=== PATIENT | female | born 2000 | race Two or more races ===

== ENCOUNTER 2024-06-04 09:14 | Inpatient (IN) | payer OTHER ==
[~2024-06-04] VITALS: Ht 167.6 cm; Wt 69.9 kg
--- NOTE | 2024-06-04 09:38 | NUR ---
PACIENTE ALERTA Y ORIENTADA X3. REFIERE DOLOR ABDOMINAL, VOMITOS X2 Y SANGRADO AL ORINAR. SE ESTIMAN VITALES Y SE UBICA.
[2024-06-04] MEDS ORDERED: ONDANSETRON HCL 2 MG/ML VIAL IV STA (09:43)
[2024-06-04] MEDS ORDERED: MEPERIDINE HCL/PF 50 MG/ML VIAL IM ONE (09:45)
--- NOTE | 2024-06-04 09:56 | NUR ---
SE LE ORIENTA A PACIENTE SOBRE LA ORDEN MEDICA, REFIERE ENTENDER LAS MISMAS. SE CANALIZA Y SE LE COLOCA H/L, SE LE GARY LAS MUESTRAS, SE NOTIFICA PARA REALIZA CT Y SE LE ADMINISTRAN LOS MEDICAMENTOS ZHANNA LA ORDEN MEDICA.
[2024-06-04 10:20] LABS: HEMATOCRIT 39.3 % (36.0-45.00); HEMOGLOBIN 13.6 g/dL (12.0-15.00); MEAN CORPUSCULAR HEMOGLOBIN 28.7 pg (27.00-32.0); MEAN CORPUSCULAR HGB CONC 34.6 g/dl (32.0-36.0); PLATELET COUNT 272 K/uL (150-450); RED BLOOD COUNT 4.73 M/uL (4.00-6.00); RED CELL DISTRIBUTION WIDTH 12.7 % (11.5-14.5)
[2024-06-04 10:40] LABS: CALCIUM 9.7 mg/dL (8.5-10.1); CREATININE SERUM 1.07 mg/dL (0.55-1.02); POTASSIUM 4.08 mEq/L (3.5-5.1)
[2024-06-04] MEDS ORDERED: SODIUM CHLORIDE 0.45 % 1,000 ML IV STA (15:34)
[2024-06-04] MEDS ORDERED: KETOROLAC TROMETHAMINE 15 MG VIAL IV STA (15:35)
--- NOTE | 2024-06-04 15:50 | NUR ---
SE ADMINISTRA MEDICAMENTO ZHANNA ORDEN MEDICA Y SE COLOCAN FLUIDOS DE MANTENIMIENTO.
[2024-06-04 17:24] LABS: URINE APPEARANCE Turbid; URINE BILIRRUBIN Negative (NEGATIVE); URINE BLOOD Large; URINE COLOR Yellow; URINE GLUCOSE Negative (NEGATIVE); URINE KETONE Negative (NEGATIVE); URINE LEUKOCYTE Large; URINE NITRATE Negative; URINE UROBILINOGEN 0.2 E.U./dl
[2024-06-04 17:25] LABS: URINE CAST 19.36 uL (0.0-1.40); URINE EPITHELIAL CELLS 19.3 uL (0.0-38.8); URINE RBC 37.5 uL (0.0-20.8)
[2024-06-04 17:47] LABS: URINE BACTERIA > 9821.5 uL (0.0-1933); URINE MUCUS SCANT; URINE PROTEIN 100 (NEGATIVE); URINE WBC > 5548.3 uL (0.0-23.2)
[2024-06-04] MEDS ORDERED: ACETAMINOPHEN 500 MG GEL..CAP PO ONE (18:00)
[2024-06-04] MEDS ORDERED: MEPERIDINE HCL 25 MG/ML AMPUL IV ONE (18:45)
[2024-06-04] MEDS ORDERED: 0.9 % SODIUM CHLORIDE 1,000 ML IV SCH ×2 (18:45→20:45)
[2024-06-04] MEDS ORDERED: CEFTRIAXONE SODIUM 2,000 MG VIAL IV ONE (19:15)
[2024-06-04] MEDS ORDERED: TAMSULOSIN HCL 0.4 MG CAP PO SCH (20:40)
[2024-06-04] MEDS ORDERED: ACETAMINOPHEN 500 MG GEL..CAP PO PRN (20:45)
[2024-06-04] MEDS ORDERED: KETOROLAC TROMETHAMINE 30 MG VIAL IU ONE (20:45)
[2024-06-04] MEDS ORDERED: KETOROLAC TROMETHAMINE 30 MG VIAL IU PRN (20:45)
[2024-06-04 21:13] VITALS: BP 96/61; O2SAT 100
[2024-06-04 21:42] LABS: INR 1.12; PARTIAL THROMBOPLASTIN TIME 30.9 SECONDS (22.0-34.0); PROTHROMBIN TIME 12.1 SECONDS (9.0-11.5)
[2024-06-05 04:23] VITALS: BP 105/54; O2SAT 100
[2024-06-05 08:53] VITALS: BP 90/55; O2SAT 97
[2024-06-05] MEDS ORDERED: CEFTRIAXONE SODIUM 2,000 MG in 0.9 % SODIUM CHLORIDE 100 ML IV SCH (09:00)
[2024-06-05] MEDS ORDERED: FAMOTIDINE/PF 20 MG in 0.9 % SODIUM CHLORIDE 8 ML IV PUSH SCH (09:00)
[2024-06-05] MEDS ORDERED: LACTOBACILLUS ACIDOPHILUS 1 CAP CAP PO SCH (17:00)
[2024-06-05 17:57] VITALS: BP 105/53
[2024-06-06 04:54] LABS: HEMATOCRIT 32.8 % (36.0-45.00); HEMOGLOBIN 11.4 g/dL (12.0-15.00); MEAN CELL VOLUME 83.9 fL (80.00-100.00); MEAN CORPUSCULAR HEMOGLOBIN 29.1 pg (27.00-32.0); MEAN CORPUSCULAR HGB CONC 34.7 g/dl (32.0-36.0); PLATELET COUNT 189 K/uL (150-450); RED BLOOD COUNT 3.91 M/uL (4.00-6.00); RED CELL DISTRIBUTION WIDTH 12.9 % (11.5-14.5)
[2024-06-06 05:20] LABS: ALBUMIN 2.9 gm/dL (3.4-5.0); BILIRUBIN TOTAL 0.56 mg/dL (0.3-1.2); CALCIUM 8.5 mg/dL (8.5-10.1); CREATININE SERUM 0.72 mg/dL (0.55-1.02); GFR 99.52; GLOBULINA 2.8 G/DL (2.4-3.5); MAGNESIUM 1.9 mg/dL (1.8-2.4); PHOSPHOROUS 2.3 mg/dL (2.5-4.9); POTASSIUM 3.87 mEq/L (3.5-5.1); TOTAL PROTEIN 5.7 gm/dL (6.4-8.2)
[2024-06-06] MEDS ORDERED: DEXTROSE 5 % IN WATER 1,000 ML IV SCH (10:00)
[2024-06-06 12:11] VITALS: BP 100/59; O2SAT 98
[2024-06-06] MEDS ORDERED: INTESTINEX680 M1 PO (15:10)
[2024-06-06] MEDS ORDERED: LEVOFLOXACIN500 MG PO (15:10)
== END 2024-06-06 17:29 | disposition home or self-care (01) | DRG 660 ==
LOC: ER 09:14 → MEDI 21:00
PROVIDERS: Emergency Medicine; General Practice; Urology; ADMIT Internal Medicine; ATTEND Internal Medicine
PROC: BW21ZZZ Computerized Tomography (CT Scan) of Abdomen and Pelvis (ICD-10-PCS; 2024-06-04)
PROC: 0T768DZ Dilation of Right Ureter with Intraluminal Device, Via Natural or Artificial Opening Endoscopic (ICD-10-PCS; principal; 2024-06-04 22:00)
DX: N20.2 Calculus of kidney with calculus of ureter (principal); N10 Acute pyelonephritis; N39.0 Urinary tract infection, site not specified; B96.4 Proteus (mirabilis) (morganii) as the cause of diseases classified elsewhere; B95.1 Streptococcus, group B, as the cause of diseases classified elsewhere

== ENCOUNTER → 2024-06-04 | Emergency (ER) | payer OTHER ==
[~2024-06-04] VITALS: Ht 167.6 cm; Wt 69.9 kg
[~2024-06-04] MED LIST: INTESTINEX680 M1 PO; LEVOFLOXACIN500 MG PO
== END | disposition left against medical advice (07) ==
LOC: ER 03:00
DX: Z53.21 Procedure and treatment not carried out due to patient leaving prior to being seen by health care provider (principal)

== ENCOUNTER 2024-07-08 12:03 | Outpatient (CLI) | payer OTHER | END 2024-07-08 12:14 | disposition home or self-care (01) | LOC: RAD 12:03 | PROVIDERS: ATTEND Urology | DX: N20.0 Calculus of kidney (principal) ==

== ENCOUNTER → 2024-07-08 12:26 | Outpatient (CLI) | payer OTHER ==
[2024-07-08 13:55] LABS: URINE APPEARANCE Cloudy; URINE BILIRRUBIN Negative (NEGATIVE); URINE BLOOD Large; URINE COLOR Yellow; URINE GLUCOSE Negative (NEGATIVE); URINE KETONE Negative (NEGATIVE); URINE LEUKOCYTE Large; URINE NITRATE Negative
[2024-07-08 13:59] LABS: URINE CAST 0.58 uL (0.0-1.40); URINE EPITHELIAL CELLS 14.8 uL (0.0-38.8); URINE PROTEIN 100 (NEGATIVE); URINE WBC 551.1 uL (0.0-23.2)
== END | disposition home or self-care (01) ==
LOC: LAB 12:26
PROVIDERS: ATTEND Urology
DX: N30.00 Acute cystitis without hematuria (principal)

== ENCOUNTER 2024-08-27 09:35 | Outpatient (CLI) | payer OTHER | END 2024-08-27 09:43 | disposition home or self-care (01) | LOC: SONOGRAMA 09:35 | PROVIDERS: ATTEND Urology | DX: N20.0 Calculus of kidney (principal); R31.1 Benign essential microscopic hematuria ==